=== PATIENT | female | born 1955 | race Two or more races ===

== ENCOUNTER 2019-06-30 05:54 | Inpatient (IN) | payer OTHER ==
[2019-06-18 13:01] VITALS: BMI 33.5
[2019-06-30] MEDS ORDERED: TRANEXAMIC ACID 1000 MG/10 ML VIAL IVPUSH ONE (06:27)
[2019-06-30] MEDS ORDERED: CEFAZOLIN 2 GM in DEXTROSE 5%-WATER - 50 ML IVPB ONE (06:27)
[2019-06-30] MEDS: CELECOXIB 200 MG CAPSULE PO ONE ×2 (06:58→13:39)
[2019-06-30] MEDS: oxyCODONE HCL 10 MG SUSTAINED ACTING TABLET PO ONE ×2 (06:59→13:39)
[2019-06-30] MEDS: GABAPENTIN 300 MG CAPSULE (FP) PO ONE ×2 (06:59→13:39)
[2019-06-30] MEDS ORDERED: BUPIVACAINE LIPOSOME/PF (EXPAREL) 266 MG/20 ML VIAL ONE (07:06)
[2019-06-30] MEDS ORDERED: MIDAZOLAM HCL 2 MG/2 ML SINGLE DOSE VIAL ONE ×2 (07:06→08:34)
[2019-06-30] MEDS ORDERED: SODIUM CHLORIDE 0.9% P/F 10 ML VIAL IJ ONE (07:07)
[2019-06-30] MEDS ORDERED: ceFAZolin SODIUM 1 GM VIAL ONE ×2 (07:11→08:43)
[2019-06-30] MEDS ORDERED: VANCOMYCIN 1,000 MG VIAL (RESTRICTED TO ID ONLY) ONE (07:11)
[2019-06-30] MEDS ORDERED: MAG HYDROX/AL HYDROX/SIMETH 30 ML UNIT-DOSE CUP PO PRN (07:54)
[2019-06-30] MEDS ORDERED: ONDANSETRON 4 MG/2 ML VIAL IVPUSH PRN ×2 (07:54→11:19)
[2019-06-30] MEDS ORDERED: MAGNESIUM HYDROX 2400MG/30ML ORAL SUSPENSION 30 ML CUP PO PRN (07:54)
--- NOTE | 2019-06-30 07:57 | HP ---
Satellite [facility] - Chief Complaint Chief Complaint: right knee pain - Past Medical History Allergies/Adverse Reactions: Allergies Allergy/AdvReac Type Severity Reaction Status Date / Time codeine Allergy Severe Difficulty Verified 06/30/19 06:33 Breathing shellfish derived Allergy Severe Difficulty Verified 06/30/19 06:33 Breathing - Current Medications Current Medications: Home Medications Medication Instructions Recorded Amlodipine Besylate 5 mg PO DAILY 06/18/19 Losartan/Hydrochlorothiazide 1 each PO DAILY 06/18/19 [Losartan-Hctz 100-25 mg Tab] Satellite Physical Exam - Physical Examination Vital Signs: Vital Signs Period Temp Pulse Resp BP Sys/Villare[place] Pulse Ox Last 24 Hr 98.3 F-98.3 F 55-55 18-18 141-141/81-81 99 General Appearance: Well Nourished, Well Developed, Alert & Oriented x3 ENT: Clear Lung: Normal air movement Heart: Regular rate & rhythm Extremities: Other (right knee- +swelling, + ttp ,decr rom, nvi, xrays show grade 4 tricompartmental djd) Neurological: Intact, Alert, Oriented Satellite Impression/Plan - Impression/Plan Impression: right knee djd Operative Procedure: right suzan tkr Date to be Performed: 06/30/19
[2019-06-30] MEDS ORDERED: LACTATED RINGERS SOLUTION 1,000 ML IV SCH (08:00)
[2019-06-30] MEDS ORDERED: BUPIVACAINE HCL/PF 0.5% (5MG/ML) 10 ML VIAL ONE (08:17)
[2019-06-30] MEDS ORDERED: PROPOFOL 20 ML ONE (08:18)
[2019-06-30] MEDS ORDERED: VANCOMYCIN 1,000 MG VIAL (RESTRICTED TO ID ONLY) IVPB ONE (09:45)
[2019-06-30] MEDS ORDERED: GLYCOPYRROLATE 0.2 MG/1 ML VIAL ONE (09:51)
[2019-06-30] MEDS ORDERED: PATIENT'S OWN MEDICATION (NON-FORMULARY) (Losartan/Hydrochlorothiazide [Losartan-Hctz 100- PO SCH (10:00)
--- NOTE | 2019-06-30 10:12 | OP ---
Operative Note - Note: Operative Date: 06/30/19 (linette) Pre-Operative Diagnosis: right knee djd Operation: right suzan tkr Post-Operative Diagnosis: Same as Pre-op Surgeon: Vladimir Saldana Refrigerator Car Icer: Cyrus Pimentel Anesthesiologist/HEARING SCREEN COORDINATOR: Dov Cortez Anesthesia: Spinal, Local Specimens Removed: bone fragments Estimated Blood Loss (mls): 200 Operative Report Dictated: Yes
[2019-06-30] MEDS ORDERED: PROMETHAZINE HCL 25 MG/1 ML VIAL IVPUSH PRN (11:19)
[2019-06-30] MEDS: ACETAMINOPHEN 325 MG TABLET (FP) PO SCH ×3 (11:30→23:00)
--- NOTE | 2019-06-30 13:14 | SPEC ---
DATE OF OPERATION: 06/30/2019 PREOPERATIVE DIAGNOSIS: Degenerative joint disease, right knee. POSTOPERATIVE DIAGNOSIS: Degenerative joint disease, right knee. PROCEDURE: Right total knee replacement with robotic-assisted navigation (MAKOplasty)/cementless. SURGICAL ATTENDING: Vladimir Saldana MD TYPING SECTION CHIEF: BIANCA Oliveira ANESTHESIA: Regional and spinal. CLOSURE: A Press-Fit Triathlon knee system with a 4 femur, 4 tibia, 9 polyethylene, a 32 patella; No. 1 Vicryl, fascia; 0 and 2-0 for subcutaneous; and 3-0 Monocryl subcuticular with skin glue for skin; 4-0 undyed Vicryl for pin sites. ESTIMATED BLOOD LOSS: Less than 100 mL. COMPLICATIONS: None. CONDITION: To recovery room in stable condition. DESCRIPTION OF OPERATIVE PROCEDURE: Patient was taken to the operating room on June 30, 2019. Regional and spinal anesthesia was administered by the anesthesiologist. IV Kefzol was administered prophylactically prior to the case as well as TXA. The right lower extremity was prepped and draped in the usual sterile fashion. The midline 10- to 12-cm longitudinal incision was made. Hemostasis was achieved with Bovie cautery. Sharp dissection was carried down to the extensor mechanism which was perform the procedure. Medial parapatellar arthrotomy was then performed, leaving a cuff of tissue for later closure. The patella was inverted and the knee was flexed up. The fat pad was excised. Subperiosteal dissection was done on the anteromedial proximal tibia until the knee was able to be brought forward. This was facilitated by taking the ACL, PCL and medial and lateral menisci. Checkpoints were placed in both the femur and in the tibia. Two parallel threaded pins were drilled superior to the knee joint through the already made incision from anterior to posterior just going through the anterior cortex but just engaging but not going through the posterior cortex. Two threaded pins were drilled through 2 small stab incisions in parallel fashion 1 handbreadth below the tibial tubercle through the anterior cortex of the tibia and engaging but not going through the posterior cortex. Both sets of pins were attached to navigation arrays for the YOUSIF system. The knee was then registered with the navigation system with center of rotation of the hip, medial and lateral malleoli and multiple sites both on the tibia and on the femur. Confirmation of excellent registration was confirmed by "popping the bubbles." At this time, the knee was thoroughly inspected to remove all osteophytes around the knee. The knee was then tensioned in varus/valgus at both full extension and at 90 degrees of flexion to ascertain our gaps. The virtual position of the components was optimized to ensure equal gaps throughout the range of motion. Once this was performed, the robot was brought into the field, was registered. The bone was cut as per the specifications on both the tibia and on the femur. The box cuts were then made as well. Excellent trial stability was obtained on the femur. The tibial baseplate was allowed to "find itself" and then was clipped into place. Confirmation of excellent external rotation of that component was confirmed by the navigation device as well.The patella was calibered for thickness and cut at the appropriate level. The appropriate lollipop was used to drill 3 holes in the patella and a trial asymmetric patellar button was applied. The knee was taken through a range of motion and found to have excellent stability from full extension to full flexion with excellent tracking of the patella. The trial components were then removed. The lug holes were drilled in the femur. The cementless keel was punched in the tibia. The real Press-Fit components were malleted into place, first with the tibia and then with the femur, and then the patella was crimped into place as well. The real polyethylene liner was then clipped into place. Range of motion, stability and tracking were as described earlier. The knee was thoroughly irrigated with copious amounts of irrigation. Vancomycin powder was placed inside the joint. The medial parapatellar arthrotomy was then closed using No. 1 Vicryl interrupted suture. Post closure of the arthrotomy, the knee was taken through a range of motion and found to have no undue tension on the repair. The subcutaneous was then pulse antibiotic irrigated, closed with 0 and 2-0 Vicryl and 3-0 Monocryl subcuticular with skin glue for the skin. Prior to closure, the checkpoints were removed as were the threaded pins. The tibial pin sites were closed with 4-0 undyed Vicryl. A sterile pressure Aquacel dressing was applied. No tourniquet was used during the case. The total blood loss was approximately 100 mL. No complication. Patient was transferred to recovery in stable condition. Cassy [id number]
[2019-06-30] MEDS: LOSARTAN 50MG/HCTZ 12.5MG 1 TAB (FP) PO SCH (13:40)
[2019-06-30] MEDS: amLODIPine BESYLATE 5 MG TABLET (FP) PO SCH (13:40)
[2019-06-30] MEDS: PANTOPRAZOLE 40 MG TABLET (FP) PO SCH (13:41)
[2019-06-30] MEDS: LACTATED RINGERS SOLUTION 1,000 ML IV SCH (13:41)
[2019-06-30] MEDS: MULTIVITAMINS (DAILY MVI) TABLET (FP) PO SCH (13:41)
[2019-06-30] MEDS: oxyCODONE HCL 5 MG TABLET PO PRN ×3 (15:41→21:33)
[2019-06-30] MEDS: CEFAZOLIN 2 GM/D5W 2 GM/50 ML ML IVPB SCH (17:25)
[2019-06-30] MEDS: GABAPENTIN 300 MG CAPSULE (FP) PO SCH (21:30)
[2019-06-30] MEDS: SENNOSIDES/DOCUSATE COMBO (SENNA PLUS) TABLET (UD) PO SCH (21:31)
[2019-07-01] MEDS: CEFAZOLIN 2 GM/D5W 2 GM/50 ML ML IVPB SCH
[2019-07-01] MEDS: ACETAMINOPHEN 325 MG TABLET (FP) PO SCH ×4 (06:30→23:04)
[2019-07-01] MEDS: oxyCODONE HCL 5 MG TABLET PO PRN ×2 (06:38→09:05)
[2019-07-01 07:28] LABS: HEMATOCRIT 35.5 % (32.4-45.2); HEMOGLOBIN 11.9 GM/dl (10.7-15.3); MCH 30.5 pg (25.7-33.7); MCHC 33.5 g/dl (32.0-36.0); MEAN CELL VOLUME 90.9 fl (80-96); MEAN PLT VOLUME 7.9 fl (7.5-11.1); PLATELET COUNT 299 K/MM3 (134-434); RBC 3.91 M/mm3 (3.60-5.2); RDW 12.7 % (11.6-15.6); WHITE BLOOD COUNT 9.4 K/mm3 (4.0-10.8)
[2019-07-01] MEDS: ASPIRIN 325 MG TABLET PO SCH (07:51)
[2019-07-01] MEDS: PANTOPRAZOLE 40 MG TABLET (FP) PO SCH (09:04)
[2019-07-01] MEDS: GABAPENTIN 300 MG CAPSULE (FP) PO SCH ×2 (09:05→21:36)
[2019-07-01] MEDS: MULTIVITAMINS (DAILY MVI) TABLET (FP) PO SCH (09:05)
[2019-07-01] MEDS: SENNOSIDES/DOCUSATE COMBO (SENNA PLUS) TABLET (UD) PO SCH ×2 (09:05→21:36)
[2019-07-01] MEDS: LOSARTAN 50MG/HCTZ 12.5MG 1 TAB (FP) PO SCH (09:05)
[2019-07-01] MEDS: amLODIPine BESYLATE 5 MG TABLET (FP) PO SCH (09:05)
--- NOTE | 2019-07-01 09:17 | PN ---
Progress Note (short form) - Note Progress Note: Ortho Pt seen and examined s/p right suzan tkr pod #1 Selected Entries 07/01/19 09:00 Temperature 98.5 F Pulse Rate 67 Respiratory 17 Rate Blood Pressure 153/76 Laboratory Tests 07/01/19 06:45 WBC 9.4 Hgb 11.9 Hct 35.5 Plt Count 299 dressing c/d/i, calf soft, nt rom 0-20, nvi a/p PT dvt ppx pain control d/c home tomorrow if stable
[2019-07-01] MEDS ORDERED: KETOROLAC TROMETHAMINE 30 MG/1 ML VIAL IVPUSH SCH (09:30)
[2019-07-01] MEDS: KETOROLAC TROMETHAMINE 30 MG/1 ML VIAL IVPUSH SCH ×3 (11:15→21:35)
[2019-07-01] MEDS: LACTATED RINGERS SOLUTION 1,000 ML IV SCH (12:47)
--- NOTE | 2019-07-01 17:39 | PN ---
Progress Note, Physician Chief Complaint: s/p right total knee replacement YOUSIF under spinal anesthesia History of Present Illness: post op day one with peripheral nerve block for post op pain control - Current Medication List Current Medications: Active Medications Acetaminophen (Tylenol -) 650 mg PO Q6H [facility] Stop: 07/03/19 11:29 Last Admin: 07/01/19 16:48 Dose: Not Given Al Hydroxide/Mg Hydroxide (Mylanta Oral Suspension -) 30 ml PO Q4H PRN PRN Reason: DYSPEPSIA Amlodipine Besylate (Norvasc -) 5 mg PO DAILY [facility] Last Admin: 07/01/19 09:05 Dose: 5 mg Aspirin (Asa -) 325 mg PO DAILY@0800 [facility] Last Admin: 07/01/19 07:51 Dose: 325 mg Fentanyl (Sublimaze Injection -) 25 mcg IVPUSH [id number] PRN PRN Reason: PAIN-PACU ORDER X 4 DOSES ONLY Gabapentin (Neurontin -) 300 mg PO BID [facility] Last Admin: 07/01/19 09:05 Dose: 300 mg HCTZ/Losartan Potassium (Hyzaar -) 2 tab PO DAILY [facility] Last Admin: 07/01/19 09:05 Dose: 2 tab Lactated Ringer's (Lactated Ringers Solution) 1,000 mls @ 125 mls/hr IV ASDIR [facility] Last Admin: 07/01/19 12:47 Dose: Not Given Ketorolac Tromethamine (Toradol Injection -) 30 mg IVPUSH Q6H [facility] Stop: 07/02/19 04:31 Last Admin: 07/01/19 16:47 Dose: Not Given Magnesium Hydroxide (Milk Of Magnesia -) 30 ml PO PRN PRN PRN Reason: CONSTIPATION Multivitamins/Minerals/Vitamin C (Tab-A-Vit -) 1 tab PO DAILY [facility] Last Admin: 07/01/19 09:05 Dose: 1 tab Ondansetron HCl (Zofran Injection) 4 mg IVPUSH Q6H PRN PRN Reason: NAUSEA Oxycodone HCl (Roxicodone -) 5 mg PO Q3H PRN PRN Reason: PAIN LEVEL 1-5 Last Admin: 07/01/19 06:38 Dose: 5 mg Oxycodone HCl (Roxicodone -) 10 mg PO Q3H PRN PRN Reason: PAIN LEVEL 6-10 Last Admin: 07/01/19 09:05 Dose: 10 mg Pantoprazole Sodium (Protonix -) 40 mg PO DAILY [facility] Last Admin: 07/01/19 09:04 Dose: 40 mg Promethazine HCl (Phenergan Injection -) 12.5 mg IVPUSH Q6H PRN PRN Reason: NAUSEA-FOR RESCUE AFTER 15 MIN Senna/Docusate Sodium (Pericolace -) 2 tablet PO BID [facility] Last Admin: 07/01/19 09:05 Dose: 2 tablet - Objective Vital Signs: Vital Signs Temperature 98.4 F 07/01/19 14:03 Pulse Rate 65 07/01/19 14:03 Respiratory Rate 18 07/01/19 14:03 Blood Pressure 133/64 07/01/19 14:03 O2 Sat by Pulse Oximetry (%) 99 07/01/19 14:03 Constitutional: Yes: Well Nourished Cardiovascular: Yes: WNL Respiratory: Yes: WNL Gastrointestinal: Yes: WNL Labs: CBC, BMP 07/01/19 06:45 Assessment/Plan Pain controlled, minimal nausea now resolved, no adverse reaction to anesthetic , dept of anesthesia will sign off care at this time.
[2019-07-02] MEDS: KETOROLAC TROMETHAMINE 30 MG/1 ML VIAL IVPUSH SCH (04:53)
[2019-07-02] MEDS: ACETAMINOPHEN 325 MG TABLET (FP) PO SCH ×2 (06:01→12:27)
--- NOTE | 2019-07-02 08:24 | PN ---
Progress Note (short form) - Note Progress Note: Ortho Pt seen and examined s/p right suzan tkr pod #2 Selected Entries 07/02/19 06:37 Temperature 98.1 F Pulse Rate 72 Respiratory 19 Rate Blood Pressure 134/63 Laboratory Tests 07/02/19 06:50 WBC Pending Hgb Pending Hct Pending Plt Count Pending dressing c/d/i, calf soft, nt rom 0-50, nvi a/p PT dvt ppx pain control d/c home today f/u in 1 week
--- NOTE | 2019-07-02 08:25 | DS ---
Physical Examination Vital Signs: Vital Signs Temperature 98.1 F 07/02/19 06:37 Pulse Rate 72 07/02/19 06:37 Respiratory Rate 19 07/02/19 06:37 Blood Pressure 134/63 07/02/19 06:37 O2 Sat by Pulse Oximetry (%) 96 07/02/19 06:37 Discharge Summary Reason For Visit: OSTEOARTHRITIS Procedures: Principal: right tkr Hospital Course: admitted for elective right suzan tkr, uneventful post-op, stable for d/c Condition: Good - Instructions Diet, Activity, Other Instructions: Post-op Instructions-Total Knee Replacement Call the office for a follow-up appointment in 1 week - [phone] Aspirin 325mg daily for 6 weeks. Pain medication was sent into your pharmacy. Apply Graduated Compression Stockings (TEDs) to both lower extremities- remove daily for hygiene ONLY Apply Sequential Compression Device (SCDs) to both Lower extremities remove for PT and hygiene ONLY Apply cold packs to affected area for 15 minutes every 2 hours. Physical Therapist will come to your home for the first 5 days. You will be set up with outpatient PT at your first post-operative visit. Patient may ambulate as tolerated-encourage self care (at least every 2-3 hours while awake) with walker or cane Maintain Aquacel (waterproof) dressing to operative wound (will be removed by surgeon at first office visit) Shower with Aquacel dressing in place-if Aquacel integrity compromised, remove and apply dry sterile dressing and notify Orthopedist. DO NOT SHOWER unless Orthopedists approves without Aquacel dressing CONTACT THE OFFICE FOR ANY CHANGE IN YOUR CONDITION (for example-fever greater than 102 degrees, excessive bleeding from operative site, purulent drainage, severe swelling or pain) GO TO THE EMERGENCY ROOM IF THERE IS A MEDICAL EMERGENCY Knee Precautions: * Keep a rolled towel under affected heel while in bed or chair (to keep knee in extension) * Keep affected leg elevated except during mealtimes * DO NOT PLACE PILLOW UNDER AFFECTED KNEE * If you have any questions, please do not hesitate to call the office - . Referrals: Vladimir Saldana MD [Staff Physician] - Disposition: VNS/HOME HEALTH CARE - Home Medications Comprehensive Discharge Medication List: Ambulatory Orders Amlodipine Besylate 5 mg PO DAILY 06/18/19 Losartan/Hydrochlorothiazide [Losartan-Hctz 100-25 mg Tab] 1 each PO DAILY 06/18 Aspirin [ASA -] 325 mg PO DAILY@0800 tablet 06/30/19 Oxycodone HCl/Acetaminophen [Percocet 5-325 mg Tablet -] 1 - 2 tab PO Q6H #50 tab MDD 8 06/30/19
[2019-07-02 08:37] LABS: HEMOGLOBIN 11.5 GM/dl (10.7-15.3); MCH 30.7 pg (25.7-33.7); MCHC 33.7 g/dl (32.0-36.0); MEAN PLT VOLUME 8.1 fl (7.5-11.1); PLATELET COUNT 300 K/MM3 (134-434); RBC 3.73 M/mm3 (3.60-5.2); RDW 12.6 % (11.6-15.6); WHITE BLOOD COUNT 14.3 K/mm3 (4.0-10.8)
[2019-07-02] MEDS: oxyCODONE HCL 5 MG TABLET PO PRN (08:42)
[2019-07-02] MEDS: ASPIRIN 325 MG TABLET PO SCH (08:42)
[2019-07-02] MEDS: amLODIPine BESYLATE 5 MG TABLET (FP) PO SCH (09:07)
[2019-07-02] MEDS: GABAPENTIN 300 MG CAPSULE (FP) PO SCH (09:07)
[2019-07-02] MEDS: LOSARTAN 50MG/HCTZ 12.5MG 1 TAB (FP) PO SCH (09:07)
[2019-07-02] MEDS: SENNOSIDES/DOCUSATE COMBO (SENNA PLUS) TABLET (UD) PO SCH (09:07)
[2019-07-02] MEDS: MULTIVITAMINS (DAILY MVI) TABLET (FP) PO SCH (09:08)
[2019-07-02] MEDS: PANTOPRAZOLE 40 MG TABLET (FP) PO SCH (09:08)
[2019-07-02 12:28] VITALS: BP 100/51; PULSE 63; TEMP 97.8
--- NOTE | 2019-07-03 18:01 | PATH ---
Surgical Pathology Report Patient Name: MICHAEL MALIN Med. Rec. #: [id number] /Age/Gender: 1955 (Age: 63) / F Account: [id number] Location: [facility] Taken: 06/30/2019 Received: 06/30/2019 Reported: 07/03/2019 Physicians: Vladimir Saldana M.D. Specimen(s) Received RIGHT KNEE BONES Clinical History Osteoarthritis right knee Final Diagnosis BONES, KNEE, RIGHT, TOTAL KNEE REPLACEMENT MAKOPLASTY: BONE WITH DEGENERATIVE JOINT DISEASE AND REACTIVE SYNOVIUM. Electronically Signed Licha Pope M.D. Gross Description Received in formalin labeled "right knee bones," is a 9.5 x 9.0 x 2.0 cm aggregate of multiple portions of bone and soft tissue. The tibial plateau measures 7.1 x 5.0 x 1.5 cm. There are no areas of eburnation identified. The articular surfaces are weir-yellow and diffusely granular. The underlying trabecular bone is yellow and hard. Machinery Mechanic sections are submitted in one cassette, following decalcification. /07/02/2019 [facility]07/02/2019
== END 2019-07-02 15:03 | disposition home health service (06) | DRG 470 ==
LOC: FM/S 05:54
PROVIDERS: ADMIT Orthopaedic Surgery; ATTEND Orthopaedic Surgery
PROC: 8E0Y0CZ Robotic Assisted Procedure of Lower Extremity, Open Approach (ICD-10-PCS; 2019-06-30)
PROC: 0SRC0JA Replacement of Right Knee Joint with Synthetic Substitute, Uncemented, Open Approach (ICD-10-PCS; principal; 2019-06-30 08:42)
DX: M17.11 Unilateral primary osteoarthritis, right knee (principal)
CPT/HCPCS: 36415; 73560-TC-RT-FY; 85027; 86803; 87389; 88305-TC; 88311-TC; 94760; 97116-GP; 97163-GP

== ENCOUNTER 2021-06-28 04:32 | Day surgery (SDC) | payer OTHER ==
[2021-06-27 14:46] VITALS: BMI 33.6
[2021-06-28] MEDS ORDERED: PROPOFOL 20 ML ONE ×2 (07:18→08:19)
[2021-06-28] MEDS ORDERED: SUCCINYLCHOLINE CHLORIDE 200 MG/10 ML SYRINGE ONE (07:18)
[2021-06-28] MEDS ORDERED: BUPIVACAINE HCL/PF 0.5% (5MG/ML) 10 ML VIAL ONE ×2 (07:31→07:41)
[2021-06-28] MEDS ORDERED: DEXAMETHASONE SOD PHOSPHATE 10 MG/1 ML VIAL ONE ×2 (07:31→07:41)
[2021-06-28] MEDS ORDERED: MIDAZOLAM HCL 2 MG/2 ML SINGLE DOSE VIAL ONE ×3 (07:33→07:59)
[2021-06-28] MEDS ORDERED: ceFAZolin SODIUM 1 GM VIAL ONE (08:00)
[2021-06-28] MEDS ORDERED: LACTATED RINGERS SOLUTION 1,000 ML IV SCH (09:30)
[2021-06-28] MEDS ORDERED: ONDANSETRON 4 MG/2 ML VIAL IVPUSH PRN (09:30)
[2021-06-28] MEDS ORDERED: oxyCODONE HCL 5 MG TABLET PO PRN (09:30)
[2021-06-28 16:31] VITALS: BP 124/79; PULSE 50; TEMP 97.7
== END 2021-06-28 14:20 | disposition home or self-care (01) ==
LOC: JASU-SURG 04:32
PROVIDERS: ATTEND Orthopaedic Surgery
PROC: 0LQ14ZZ Repair Right Shoulder Tendon, Percutaneous Endoscopic Approach (ICD-10-PCS; principal; 2021-06-28 08:00)
PROC: 0RNJ4ZZ Release Right Shoulder Joint, Percutaneous Endoscopic Approach (ICD-10-PCS; 2021-06-28 08:00)
DX: M75.101 Unspecified rotator cuff tear or rupture of right shoulder, not specified as traumatic (principal)
CPT/HCPCS: 94760; J1100

== ENCOUNTER 2021-10-03 04:40 | Day surgery (SDC) | payer OTHER ==
[2021-09-29 14:07] VITALS: BMI 36.6
[2021-10-03 11:04] VITALS: BP 150/63; PULSE 51; TEMP 98
== END 2021-10-03 11:28 | disposition home or self-care (01) ==
LOC: JASU-ENDO 04:40
PROVIDERS: ATTEND Internal Medicine Gastroenterology
PROC: 0DBN8ZX Excision of Sigmoid Colon, Via Natural or Artificial Opening Endoscopic, Diagnostic (ICD-10-PCS; principal; 2021-10-03 10:15)
DX: Z12.11 Encounter for screening for malignant neoplasm of colon (principal); D12.5 Benign neoplasm of sigmoid colon; K64.8 Other hemorrhoids
CPT/HCPCS: 88305-TC

== ENCOUNTER 2023-10-29 04:21 | Day surgery (SDC) | payer OTHER ==
[2023-10-25 15:34] VITALS: BMI 33.6
[2023-10-29] MEDS ORDERED: DEXAMETHASONE SOD PHOSPHATE 10 MG/1 ML VIAL ONE (07:21)
[2023-10-29] MEDS ORDERED: LIDOCAINE HCL/PF 2% SDV 5ML VIAL INF ONE (11:45)
[2023-10-29] MEDS ORDERED: IOHEXOL 180 MG/1 ML ML IJ ONE (11:47)
[2023-10-29] MEDS ORDERED: DEXAMETHASONE SOD PHOSPHATE 10 MG/1 ML VIAL IVPUSH ONE (11:50)
[2023-10-29 13:39] VITALS: RESP 18
[2023-10-29 13:41] VITALS: BP 151/72; PULSE 75; TEMP 98.3
[2023-10-29] MEDS ORDERED: ACETAMINOPHEN 500 MG TABLET (FP) PO PRN (22:39)
== END 2023-10-29 13:20 | disposition home or self-care (01) ==
LOC: JASU-SURG 04:21
PROVIDERS: ATTEND Pain Medicine Pain Medicine
PROC: 3E0R3BZ Introduction of Anesthetic Agent into Spinal Canal, Percutaneous Approach (ICD-10-PCS; 2023-10-29)
PROC: 3E0R33Z Introduction of Anti-inflammatory into Spinal Canal, Percutaneous Approach (ICD-10-PCS; principal; 2023-10-29 10:00)
DX: M54.12 Radiculopathy, cervical region (principal)
CPT/HCPCS: 76000-TC-FY; J1100